=== PATIENT | male | born 1950 | race Asian ===

== ENCOUNTER 2021-02-12 00:19 | Emergency (ER) | payer MEDICARE, BC ==
[~2021-02-12] VITALS: Ht 175.3 cm; Wt 81.6 kg
[~2021-02-12 00:19] MED LIST: ACET-8386 GT; ASCO500S14 GT; BACL10TA4 GT; BISA10SU1 RC; DOCU50SO1 GT; DULO30EC GT; GABA300C GT; GLYC15SO12 OP; HYDR-5191 GT; IMO2 GT; LOV40I SUBQ; MULT-1831 GT; OMEP-283 GT; POTA20LI GT; PRON INH; TEMA15CA24 GT
[2021-02-12 00:35] VITALS: BP 148/76
--- NOTE | 2021-02-12 01:10 | NUR ---
[facility] DEPRESSION AND PYCH EVALUATION. PER FACILITY PATIENT HAS HX OF DEPRESSION AND PATIENT VERBALIZED, " I NO LONGER WANT TO ME ALIVE." PATIENT IS ALERT AND ORIENTED TO PERSON AND TIME. PATIENT DENIES WANTING TO KILL SELF AND DENIES HAVING PLAN TO HARM SELF. PATIENT STATES, " I DON'T WANT TO LIVE LIKE THIS ANYMORE. I CAN'T TAKE CARE OF MYSELF." PAITENT CALM, AND COOPERATIVE. DENIES HALLUCINATIONS OR HOMICIDAL IDEATIONS. PATIENT UNABLE TO MOVE BILAT UE AND LE D/T HX OF TIA. MEDHX: PARAPALEGIC, DM TYPE II, CHRONIC RESPIRATIORY FAILURE, BPH. NKA
--- NOTE | 2021-02-12 01:10 | NUR ---
PATIENT TAKEN TO BED 7 VIA GURNEY WITH ASSISTANCE FROM EMS.
[2021-02-12 01:45] LABS: BASOPHILS # (AUTO) 0.1 K/uL (0.00-0.22); BASOPHILS % (AUTO) 0.6 % (0.0-2.0); EOSINOPHILS # (AUTO) 0.8 K/uL (0-0.4); EOSINOPHILS % (AUTO) 8.5 % (0.0-4.0); HEMATOCRIT 39.8 % (36-52); HEMOGLOBIN 12.6 g/dL (12.0-18.0); LYMPHOCYTES # (AUTO) 3.4 K/uL (2.0-11.5); MEAN CORPUSCULAR HEMOGLOBIN 25 pg (27-31); MEAN CORPUSCULAR HGB CONC 32 g/dL (33-37); MEAN CORPUSCULAR VOLUME 77.5 fL (80-94); MONOCYTES # (AUTO) 0.6 K/uL (0.8-1.0); MONOCYTES % (AUTO) 6.7 % (1.7-9.3); NEUTROPHILS # (AUTO) 4.3 K/uL (1.8-7.7); NEUTROPHILS % (AUTO) 47.2 % (42.2-75.2); PLATELET COUNT (AUTO) 221 K/uL (140-450); RED BLOOD CELL COUNT(AUTO) 5.14 MIL/uL (4.20-6.10); WHITE BLOOD COUNT (AUTO) 9.1 K/uL (4.8-10.8)
[2021-02-12 02:05] LABS: ALBUMIN 3.1 g/dL (3.4-5.0); ASPARTATE AMINOTRANSFERASE 15 U/L (15-37); CARBON DIOXIDE 27.8 mmol/L (21-32); CHLORIDE 99 mmol/L (98-107); CREATININE 1.5 mg/dL (0.6-1.3); GLUCOSE 241 mg/dL (74-106); POTASSIUM 4.8 mmol/L (3.5-5.1); SODIUM SERUM 135 mmol/L (136-145); TOTAL BILIRUBIN 0.2 mg/dL (0.0-1.0); UREA NITROGEN, BLOOD 46 mg/dL (7-18)
--- NOTE | 2021-02-12 02:16 | NUR ---
PATIENT REPOSITIONED WITH PILLOWS AT BEDISDE FOR COMFORT. PATIENT DENIES PAIN AT THIS TIME. ALL NEEDS MET AT THIS TIME. BED IS LOCKED AND IN LOWEST POSITION.
[2021-02-12 02:19] LABS: ACETAMINOPHEN < 0.5 ug/ml (10-30); SALICYLATE < 2.8 mg/dL (2.8-20.0)
--- NOTE | 2021-02-12 03:12 | NUR ---
Patient appears to be resting comfortably in bed. Vital Signs within normal limits. Respirations even and unlabored. Patient repositioned in bed for comfort measures.
--- NOTE | 2021-02-12 04:22 | NUR ---
PATIENT SLEEPING BUT EASILY AROUSABLE PATIENT. ALERT AND OPRIENTED X 2. PATIENT DENIES ANY PAIN AT THIE TIME. PATIENT REFUSED BLANKET AT THIS TIME. PATIENT REPOSITIONED FOR COMFORT. TELEPSYCH STATES UNABLE TO CONSULT TIL 9AM IN THE MORNING. BED IS LOCKED AND IN LOWEST POSITION.
--- NOTE | 2021-02-12 06:00 | NUR ---
Patient appears to be resting comfortably in bed. Vital Signs within normal limits. Respirations even and unlabored.
--- NOTE | 2021-02-12 06:30 | NUR ---
PERNEIL CARE PROVIDED. PATIENT NOTED WITH RECTAL BAG, 200 CC OF SOFT BROWN STOOL NOTED, SCROTAL SKIN INTACT, PATIENT NOTED WITH SACRAL WOUND. SKIN LEFT CLEAN AND DRY.
--- NOTE | 2021-02-12 07:15 | NUR ---
Patient appears to be resting comfortably in bed. Vital Signs within normal limits. Respirations even and unlabored.
[2021-02-12 08:01] LABS: BARBITURATE, URINE NEGATIVE ng/ml (NEG <=200); BENZODIAZEPINE, URINE NEGATIVE ng/mL (NEG <=200); CANNABINOID, URINE NEGATIVE ng/mL (NEG <=50); COCAINE, URINE NEGATIVE ng/mL (NEG <=300); OPIATE, URINE POSITIVE ng/mL (NEG <=2000); PHENCYCLIDINE SCREEN,URINE NEGATIVE ng/mL (NEG <=25)
[2021-02-12] MEDS ORDERED: MAG SULF 2000 MG/WATER PREMIX 50 ML IV PRN (08:20)
[2021-02-12] MEDS ORDERED: DOCUSATE SODIUM 100 MG GELCAP PO PRN (08:20)
[2021-02-12] MEDS ORDERED: ACETAMINOPHEN 325 MG TAB PO PRN (08:20)
[2021-02-12] MEDS ORDERED: MORPHINE SULFATE 2 MG/ML SYR IVP PRN (08:20)
[2021-02-12] MEDS ORDERED: ONDANSETRON 4 MG/2 ML VIAL IVP PRN (08:20)
[2021-02-12] MEDS ORDERED: LORazepam 2 MG/ML VIAL IVP PRN (08:20)
[2021-02-12] MEDS ORDERED: POTASSIUM CHLORIDE 10 MEQ TABER PO PRN (08:20)
[2021-02-12] MEDS ORDERED: ZOLPIDEM 10 MG TAB PO PRN (08:20)
--- NOTE | 2021-02-12 09:08 | NUR ---
PER DAUGHTER, SHE CAN TAKE HIM BACK TO THE FACILITY. [phone]. AMADOR.
--- NOTE | 2021-02-12 10:28 | NUR ---
PT BEING EVALUATED BY TELEPSYCH DOCTOR AT THIS TIME
--- NOTE | 2021-02-12 10:42 | NUR ---
PT SEEN BY DR SALGADO PSYCHIATRIST AND SPEAKING WITH DR HAMLIN ABOUT REC.
[2021-02-12] MEDS ORDERED: FLUO10CA21 PO (10:46)
--- NOTE | 2021-02-12 11:17 | NUR ---
PT EUGENE FOR D/C. DR ARAUJO TO TRANSPORT BACK TO FACILITY
--- NOTE | 2021-02-12 12:35 | NUR ---
Note melany in EDM - 02/12/21 at 1236 by [email or web address] Pt repositioned for comfort, pericare provided. linens changed. GT patent and intact.
--- NOTE | 2021-02-12 12:39 | NUR ---
Pt repositioned for comfort, pericare provided. linens changed. GT patent and intact.
[2021-02-12 13:20] VITALS: BP 123/74
--- NOTE | 2021-02-12 13:20 | NUR ---
Patient discharged with v/s stable. Written and verbal after care instructions given and explained. Patient alert, oriented and verbalized understanding of instructions. Transport with to snf. All questions addressed prior to discharge. ID band removed. Patient advised to follow up with PMD. Rx of PROZAC given. Patient educated on indication of medication including possible reaction and side effects. Opportunity to ask questions provided and answered.
== END 2021-02-12 13:20 ==
LOC: MED 00:19
DX: F32.9 Major depressive disorder, single episode, unspecified (principal); J44.9 Chronic obstructive pulmonary disease, unspecified; E11.22 Type 2 diabetes mellitus with diabetic chronic kidney disease; N18.9 Chronic kidney disease, unspecified; K21.9 Gastro-esophageal reflux disease without esophagitis; Z79.899 Other long term (current) drug therapy; Z86.73 Personal history of transient ischemic attack (TIA), and cerebral infarction without residual deficits
CPT/HCPCS: 36415; 80053; 80305; 83036; 85025; 93005; 99285; G0480; G0482